=== PATIENT | male | born 1995 | race Hispanic/Latino ===

== ENCOUNTER 2019-07-04 12:40 | Emergency (ER) | payer OTHER ==
[2019-07-04] MEDS ORDERED: TETRACAINE HCL 0.5% 4 ML OPHTH SOLN ONE (12:50)
[2019-07-04] MEDS ORDERED: FLUORESCEIN SODIUM 1 STRIP STRIP ONE (12:51)
== END 2019-07-04 14:33 | disposition home or self-care (01) ==
LOC: EDH 12:40
DX: L03.213 Periorbital cellulitis (principal); I10 Essential (primary) hypertension; Z87.891 Personal history of nicotine dependence